=== PATIENT | female | born 1975 | race Caucasian/White ===

== ENCOUNTER → 2021-07-15 | Outpatient (CLI) | payer OTHER ==
[2021-07-15 09:29] LABS: Basophils % (A) 1 %; Eosinophils % (A) 1 %; HGB 14.6 gm/dL (11.4-16.0); Lymphocytes # (A) 1.4 k/uL (1.0-4.8); Lymphocytes % (A) 28 %; MCH 30.3 pg (25.0-35.0); MCHC 33.2 g/dL (31.0-37.0); Monocytes # (A) 0.3 k/uL (0-1.0); Monocytes % (A) 6 %; Neutrophils # (A) 3.2 k/uL (1.3-7.7); Neutrophils % (A) 63 %; Platelet Count 283 k/uL (150-450); RBC 4.83 m/uL (3.80-5.40); RDW 13.7 % (11.5-15.5)
[2021-07-15 09:45] LABS: Appearance,Urine Clear (Clear); Bilirubin,Urine Negative (Negative); Blood,Urine Negative (Negative); Color,Urine Yellow; Glucose,Urine (UA) Negative (Negative); Ketones,Urine Negative (Negative); Leukocyte Esterase,Urine Negative (Negative); Nitrite,Urine Negative (Negative); Protein,Urine Negative (Negative); Specific Gravity,Urine 1.016 (1.001-1.035); Urobilinogen,Urine <2.0 mg/dL (<2.0)
[2021-07-15 09:59] LABS: African American GFR (CKD) >90 (>60 ml/min/1.73 sqM); Anion Gap 8 mmol/L; Blood Urea Nitrogen 15 mg/dL (7-17); Calcium 9.7 mg/dL (8.4-10.2); Carbon Dioxide 24 mmol/L (22-30); Chloride 106 mmol/L (98-107); Glucose 97 mg/dL (74-99); Non-African American GFR(CKD) 85 (>60 ml/min/1.73 sqM); Potassium 4.5 mmol/L (3.5-5.1); Sodium 138 mmol/L (137-145)
== END | disposition home or self-care (01) ==
LOC: LABPAT 08:13
PROVIDERS: ATTEND Urology
DX: Z01.812 Encounter for preprocedural laboratory examination (principal); N39.3 Stress incontinence (female) (male)
CPT/HCPCS: 36415; 80048; 81003; 85025; 87086

== ENCOUNTER 2021-07-22 07:30 | Observation (INO) | payer OTHER ==
[2021-07-21 09:46] VITALS: BMI 24.5
--- NOTE | 2021-07-21 19:03 | P.GSHP ---
History of Present Illness H&P Date: 07/21/21 45 yo female with a history of mixed incontinence. SHe was placed on anticholinergics with limited success. She failed aggressive kegal exercises. She has documented jake on p/e and uds. SHe was given all the varied treatment options with risks and complications discussed. THe mesh controversy was also discussed She comes for a TOT. - Constitutional Constitutional: Denies chills, Denies fever - EENT Eyes: denies blurred vision, denies pain Ears, nose, mouth and throat: Denies headache, Denies sore throat - Cardiovascular Cardiovascular: Denies chest pain, Denies shortness of breath - Respiratory Respiratory: Denies cough, Denies 7 - Gastrointestinal Gastrointestinal: Denies abdominal pain, Denies diarrhea, Denies nausea, Denies vomiting - Genitourinary (Female) Genitourinary: Denies dysuria, Denies hematuria - Genitourinary (Male) Genitourinary: Denies dysuria, Denies hematuria - Musculoskeletal Musculoskeletal: Denies myalgias - Integumentary Integumentary: Denies pruritus, Denies rash - Neurological Neurological: Denies numbness, Denies weakness - Psychiatric Psychiatric: Denies anxiety, Denies depression - Endocrine Endocrine: Denies fatigue, Denies weight change Past Medical History Past Medical History: Osteoarthritis (OA) Additional Past Medical History / Comment(s): URINARY STRESS INCONTINENCE History of Any Multi-Drug Resistant Organisms: None Reported Past Surgical History: Section, Cholecystectomy, Uterine Ablation Additional Past Surgical History / Comment(s): C SECTION X3 , Past Anesthesia/Blood Transfusion Reactions: No Reported Reaction Smoking Status: Former smoker - Past Family History Mother Family Medical History: No Reported History Medications and Allergies Home Medications Medication Instructions Recorded Confirmed Type No Known Home Medications 07/21/21 07/21/21 History Allergies Allergy/AdvReac Type Severity Reaction Status Date / Time codeine Allergy Rash/Hives, Verified 07/21/21 08:41 VOMITING Surgical - Exam - General well developed, well nourished, no distress - Eyes normal ocular movement, no icteric - ENT no hearing loss, no congestion - Neck no masses, trachea midline - Respiratory normal respiratory effort, clear to auscultation - Cardiovascular Rhythm: regular - Abdomen Abdomen: soft, non tender, no guarding, no rigid, no rebound - Genitourinary hypermobile urethra with a positive judd test. - Integumentary no rash, no abnormal pigmentation - Neurologic no disoriented, no combative - Psychiatric oriented to time, oriented to person, oriented to place, speech is normal, memory intact Assessment and Plan Assessment: Impression: JAKE Plan: TOT
[~2021-07-22 07:30] MED LIST: AMPICILLIN 1,000 MG in SODIUM CHLORIDE 0.9% 50 ML IVPB PRN; GENTAMICIN 80 MG in SODIUM CHLORIDE 0.9% 100 ML IVPB PRN
[2021-07-22] MEDS ORDERED: ONDANSETRON 4 MG/2 ML VIAL IVP ONE (07:47)
[2021-07-22] MEDS ORDERED: SCOPOLAMINE 1.5MG/72HR PATCH TRANSDERM ONE (07:47)
[2021-07-22] MEDS ORDERED: fentaNYL (PF) 50 MCG/ML 2 ML AMP IV PRN (07:47)
[2021-07-22] MEDS ORDERED: LIDOCAINE 1% (10MG/ML) FOR IV START INTRADERMA PRN (07:47)
[2021-07-22] MEDS ORDERED: DEXAMETHASONE SOD PHOSPHATE 4 MG/ML 1 ML VIAL IV ONE (07:47)
[2021-07-22] MEDS ORDERED: LACTATED RINGERS 1,000 ML IV SCH (07:47)
[2021-07-22] MEDS ORDERED: ACETAMINOPHEN IV (For NPO) 1,000 MG/100 ML VIAL ONE (08:18)
[2021-07-22] MEDS ORDERED: LIDOCAINE 1% INJ 10MG/ML (20 ML MDV) ONE (08:18)
[2021-07-22] MEDS ORDERED: PROPOFOL 10 MG/ML 20 ML VIAL IV ONE (08:18)
[2021-07-22] MEDS ORDERED: MIDAZOLAM 2 MG/2 ML VIAL ONE (08:18)
[2021-07-22] MEDS ORDERED: fentaNYL (PF) 50 MCG/ML 2 ML AMP ONE (08:18)
[2021-07-22] MEDS ORDERED: KETOROLAC 15 MG/ML 1 ML VIAL ONE (08:18)
[2021-07-22] MEDS ORDERED: VASOPRESSIN 20 UNIT/ML 1 ML VIAL IM ONE (08:44)
[2021-07-22] MEDS ORDERED: GENTAMICIN 80 MG in SODIUM CHLORIDE 0.9% 200 ML IRRIGATION ONE (08:44)
[2021-07-22] MEDS ORDERED: BACITRACIN ZINC 500 UNIT/GM OINT 28.4 GM TUBE TOPICAL ONE (09:01)
[2021-07-22] MEDS ORDERED: ONDANSETRON 4 MG/2 ML VIAL IVP PRN (09:34)
--- NOTE | 2021-07-22 09:40 | P.OP ---
Date of Procedure: 07/22/21 Preoperative Diagnosis: Stress urinary incontinence Postoperative Diagnosis: Same Procedure(s) Performed: Trans-obturator tape (obtyryx 2) , cystoscopy Anesthesia: SETH Surgeon: Gui Barboza Estimated Blood Loss (ml): 25 Pathology: none sent Condition: stable Disposition: PACU Indications for Procedure: The patient is 45. She has documented stress urinary incontinence. She come for a trans-obturator tape. Risks and complications including infection pain bleeding erosion incontinence retention dyspareunia been explained and understood and accepted. Alternatives have been offered. Description of Procedure: Patient is brought to the operating suite. She is given a general anesthetic. She's placed lithotomy position with sterile prep and drape. The labia are sewn laterally with 2-0 silk. A Arambula catheters introduced sterilely. A vaginal speculum was placed. The anterior vaginal mucosa was elevated off the submucosa with 10 mL of a mixture of 20 g of Pitressin and 200 mL of saline. A midline suburethral incision is made. I dissect lateral the bladder neck bilaterally. I make 2 incisions in the inguinal crease at the level of the clitoris bilaterally. I passed introducers through this incision through the obturator foramen into the vaginal space bilaterally making sure not to buttonhole the vaginal fornix. I removed the cystoscope and inspect the bladder to make sure there is no introduction of the introducers into the bladder and there is none. I replaced Arambula catheter. I attached the graft to each end of the introducers and pull the graft back through the obturator foramen bilaterally. The graft sit in the mid urethra nicely. The redundant achieving is removed. I closed the vaginal mucosa with 3-0 Vicryl. I excised the redundant graft at the inguinal incisions. A close inguinal incisions 4-0 Vicryl. A vaginal packing is placed. The labial stitches are removed as is the vaginal speculum. The patient is awake and returned recovery room in good condition. Blood loss is approximately 25 mL. She tolerated the procedure well be placed in the hospital postoperatively.
[2021-07-22] MEDS ORDERED: LACTATED RINGERS 1,000 ML IV ONE ×2 (10:16)
[2021-07-22] MEDS: DEXTROSE 5%-0.45% NACL 1,000 ML IV SCH (12:33)
[2021-07-22] MEDS: KETOROLAC 30 MG/ML 1 ML VIAL IVP PRN ×2 (14:47→20:49)
[2021-07-23] MEDS: KETOROLAC 30 MG/ML 1 ML VIAL IVP PRN ×2 (02:39→10:22)
[2021-07-23] MEDS: DEXTROSE 5%-0.45% NACL 1,000 ML IV SCH ×2 (08:04→10:25)
[2021-07-23 09:06] VITALS: BP 123/78; PULSE 79; RESP 14; TEMP 97.7
--- NOTE | 2021-07-23 11:19 | P.DS ---
Providers Date of admission: 07/22/21 22:05 Expected date of discharge: 07/23/21 Attending physician: Gui Barboza Primary care physician: [facility] Course: On the day of admission, the patient underwent an uncomplicated Obtryx TOT sling. The perioperative course was unremarkable. The patient remained afebrile with stable vital signs. On the first postoperative day, she reported mild discomfort which was relieved by Toradol. The Arambula catheter was removed on the first postoperative day. She was subsequently able to void without difficulty, and verified to be emptying adequately. The incisions were clean, dry, and intact. Procedures: Obtryx TOT sling on 07/22/2021. Patient Condition at Discharge: Good Plan - Discharge Summary Discharge Rx Participant: No New Discharge Prescriptions: New Cephalexin [Keflex] 500 mg PO Q8HR 3 Days #9 cap Ketorolac [Toradol] 10 mg PO Q6HR PRN #10 tab PRN Reason: Pain Discharge Medication List Cephalexin [Keflex] 500 mg PO Q8HR 3 Days #9 cap 07/23/21 [Rx] Ketorolac [Toradol] 10 mg PO Q6HR PRN #10 tab 07/23/21 [Rx] Follow up Appointment(s)/Referral(s): Gui Barboza MD [STAFF PHYSICIAN] - 07/28/21 Activity/Diet/Wound Care/Special Instructions: Diet as tolerated. Okay to shower. No lifting, driving, or strenuous activity. Discharge Disposition: HOME SELF-CARE
== END 2021-07-23 12:04 | disposition home or self-care (01) ==
LOC: OR 07:30 → 6PED 09:20 → OR 22:05
PROVIDERS: ADMIT Urology; ATTEND Urology
DX: N39.3 Stress incontinence (female) (male) (principal); M19.90 Unspecified osteoarthritis, unspecified site; Z20.822 Contact with and (suspected) exposure to COVID-19; Z88.5 Allergy status to narcotic agent; Z90.49 Acquired absence of other specified parts of digestive tract; Z87.891 Personal history of nicotine dependence; Z98.891 History of uterine scar from previous surgery
CPT/HCPCS: 57288; 81025; 87635; G0378 ×2; C1771; J2250; J1580 ×2; J1100; J2405; J2001; J3010; J1885 ×3; J0290; J0131; J2704

== ENCOUNTER 2023-02-09 09:46 | Day surgery (SDC) | payer BC, OTHER ==
[2023-02-07 13:05] VITALS: BMI 24.5
[~2023-02-09 09:46] MED LIST changes: -AMPICILLIN 1,000 MG in SODIUM CHLORIDE 0.9% 50 ML IVPB PRN; -GENTAMICIN 80 MG in SODIUM CHLORIDE 0.9% 100 ML IVPB PRN; +LACTATED RINGERS 1,000 ML IV SCH; +LIDOCAINE 1% (10MG/ML) FOR IV START INTRADERMA PRN; +ONDANSETRON 4 MG/2 ML VIAL IVP PRN
[2023-02-09 10:36] VITALS: TEMP 96.9
[2023-02-09] MEDS ORDERED: PROPOFOL 10 MG/ML 20 ML VIAL IV ONE (10:54)
--- NOTE | 2023-02-09 11:18 | P.PCN ---
Date of Procedure: 02/09/23 Procedure(s) Performed: BRIEF HISTORY: Patient is a 47-year-old pleasant white female scheduled for an elective colonoscopy as a part of evaluation of change in bowel habits for the last several months PROCEDURE PERFORMED: Colonoscopy. PREOPERATIVE DIAGNOSIS: Change in bowel habits. IV sedation per Anesthesia. PROCEDURE: After informed consent was obtained, the patient, was brought into the endoscopy unit. IV sedation was administered by Anesthesia under continuous monitoring. Digital rectal examination was normal. Initially the Olympus CF-160 flexible video colonoscope was then inserted in the rectum, gradually advanced into the cecum without any difficulty. Careful examination was performed as the scope was gradually being withdrawn. Ileocecal valve and the appendiceal orifice were visualized and appeared normal. Prep was excellent. Mucosa of the cecum, ascending colon, transverse colon, descending colon, sigmoid colon, and rectum appeared normal. Retroflexion was performed in the rectum and no lesions were seen. The patient tolerated the procedure well. IMPRESSION: Normal-appearing colon from rectum to cecum with no evidence of colorectal neoplasia. RECOMMENDATIONS: Findings of this examination were discussed with the patient as well as a family. She was advised to have a repeat screening colonoscopy in 10 years . Recommend a high-fiber diet and fiber supplements a regular basis and use [id number] osmotic laxatives as needed
[2023-02-09 12:10] VITALS: BP 123/82; PULSE 67; RESP 16
== END 2023-02-09 12:14 | disposition home or self-care (01) ==
LOC: ORWHC2ENDO 09:46
PROVIDERS: ATTEND Internal Medicine Gastroenterology
DX: R19.4 Change in bowel habit (principal); M19.90 Unspecified osteoarthritis, unspecified site; Z87.891 Personal history of nicotine dependence; Z88.5 Allergy status to narcotic agent
CPT/HCPCS: 45378; J2704